=== PATIENT | male | born 1980 | race Caucasian/White ===

== ENCOUNTER → 2016-06-04 | Outpatient (CLI) | payer OTHER ==
[~2016-06-04] MED LIST: AMLO1CAP11 PO; CYCL-375 PO; GADOBUTROL 10mMol/10ml INJECTION IV ONE; SALINE FLUSH 10ml SYRINGE ONE; TIMO5DRO7 LEFT EYE; TRAM50TA4 PO
--- NOTE | 2016-06-04 08:53 | DI ---
Indication: ITS.REASON: M54.5 LOW BACK PAIN and bilateral leg pain PROCEDURE: MRI LUMBAR SPINE W/WO CONTRAST: Encounter: Initial Comparison: August 12, 2015 Technique: Multiplanar multisequence MR imaging of the lumbar spine was performed with and without contrast. Contrast: 10 mL Gadavist Findings: Alignment of the lumbar spine is stable. Interval enlargement of a Schmorl's node involving the inferior endplate of L4 with some surrounding edema. Vertebral body heights are otherwise unchanged. Conus medullaris terminates normally at L1-L2. Paraspinal soft tissues show no acute findings. Segmental analysis: L1-L2: Normal L2-L3: Normal L3-L4: Mild central disk bulge without central canal stenosis. No neural foraminal stenosis. This is unchanged. L4-L5: Central disk protrusion slightly narrowing the right lateral recess. No central canal stenosis. Degenerative facet disease contributing to mild right neural foraminal stenosis. No left foraminal narrowing. The disk protrusion is smaller than the prior study. Recommend correlation for any interval surgery. L5-S1: Small central disk protrusion without central canal stenosis. Mild degenerative facet disease with mild right neural foraminal narrowing. No left foraminal stenosis. This is unchanged. No areas of worrisome postcontrast enhancement. Small amount of epidural enhancing scar tissue at the L4-L5 level. Impression: 1. Enlargement of a Schmorl's node deforming the inferior endplate of L4 with adjacent edema suggesting that this could be a recent development. 2. Decrease in size of the L4-L5 disk protrusion which may be due to interval surgery. Mild right neural foraminal narrowing at L4-L5 and L5-S1 is stable. .
== END ==
LOC: IMA 06:39
PROVIDERS: ATTEND Family Medicine
DX: M51.27 Other intervertebral disc displacement, lumbosacral region (principal); M51.46 Schmorl's nodes, lumbar region; M47.9 Spondylosis, unspecified
CPT/HCPCS: 72158; A9585